=== PATIENT | male | born 1955 | race Caucasian/White ===

== ENCOUNTER → 2017-07-27 | Outpatient (CLI) | payer OTHER ==
[~2017-07-27] MED LIST: ALPR.25 PO; AMLO10 PO; Aspirin EC81 MG PO; DULERA 100 MCG/13 GM; DULO60 PO; PRAM.125 PO; Percocet 5-3251 EACH PO; Prinivil10 MG PO; TAMS.4ER PO
== END ==
LOC: LAB EV 10:30
DX: L08.9 Local infection of the skin and subcutaneous tissue, unspecified (principal); I10 Essential (primary) hypertension
CPT/HCPCS: 87070; 87205

== ENCOUNTER → 2017-11-08 18:44 | Emergency (ER) | payer OTHER ==
[~2017-11-08 18:44] MED LIST changes: -ALPR.25 PO; -AMLO10 PO; -Aspirin EC81 MG PO; -DULERA 100 MCG/13 GM; -DULO60 PO; -PRAM.125 PO; -Prinivil10 MG PO; -TAMS.4ER PO
== END | disposition left against medical advice (07) ==
LOC: ER 18:44
DX: Z53.21 Procedure and treatment not carried out due to patient leaving prior to being seen by health care provider (principal)

== ENCOUNTER 2019-06-12 08:08 | Day surgery (SDC) | payer OTHER ==
[~2019-06-12 08:08] MED LIST changes: +ALPR.25 PO; +AMLO10 PO; +Aspirin EC81 MG PO; +DULERA 100 MCG/13 GM; +DULO60 PO; +PRAM.125 PO; +Prinivil10 MG PO; +TAMS.4ER PO
[2019-06-12] MEDS ORDERED: Hair, Skin & N1 EACH PO (09:44)
== END 2019-06-12 08:50 | disposition home or self-care (01) ==
LOC: ATC 08:08
DX: E87.1 Hypo-osmolality and hyponatremia (principal); I10 Essential (primary) hypertension; J45.909 Unspecified asthma, uncomplicated; F32.9 Major depressive disorder, single episode, unspecified; F41.9 Anxiety disorder, unspecified; N40.0 Benign prostatic hyperplasia without lower urinary tract symptoms; Z88.2 Allergy status to sulfonamides; Z79.82 Long term (current) use of aspirin; Z79.899 Other long term (current) drug therapy; Z98.52 Vasectomy status
CPT/HCPCS: 36415; 80400; 82533; 96372; J0834

== ENCOUNTER 2020-11-02 05:56 | Day surgery (SDC) | payer OTHER ==
[~2020-11-02] VITALS: Ht 183 cm; Wt 86.0 kg
[~2020-11-02 05:56] MED LIST changes: +ACET500 PO; +ALBU90OI INH; +CLON1 PO; -DULERA 100 MCG/13 GM; +DULERA 100 MCG/13 GM INH; +Flonase 0.05% N16 GM; +Hair, Skin & N1 EACH PO; +Lamictal25 MG PO; +Naproxen375 M1 PO; +THERA-D2000 UNIT PO
--- NOTE | 2020-11-02 07:23 | NUR ---
Ambulatory in Day Surgery History, Chart, Medications and Allergies reviewed before start of procedure.Patient confirms NPO status and agrees with scheduled surgery. Lungs clear T/O to Auscultation. Patient reports completing Chlorhexadine shower X2 prior to admission to hospital.Surgical site prepped with 2% Chlorhexidine cloth wipe.
--- NOTE | 2020-11-02 14:21 | NUR ---
Discharge instructions reviewed with patient. Patient verbalizes understanding. Copy given to patient to take home. Discharged via wheelchair to private car for ride home.
== END 2020-11-02 14:15 | disposition home or self-care (01) ==
LOC: ORSCMMR 05:56 → ORD 07:30 → ORSCMMR 07:30
PROVIDERS: Surgery
PROC: 8E0W4CZ Robotic Assisted Procedure of Trunk Region, Percutaneous Endoscopic Approach (ICD-10-PCS; principal; 2020-11-02 07:30)
PROC: 0YUA4JZ Supplement Bilateral Inguinal Region with Synthetic Substitute, Percutaneous Endoscopic Approach (ICD-10-PCS; principal; 2020-11-02 07:30)
DX: K40.20 Bilateral inguinal hernia, without obstruction or gangrene, not specified as recurrent (principal); I10 Essential (primary) hypertension; J45.909 Unspecified asthma, uncomplicated; Z79.899 Other long term (current) drug therapy
CPT/HCPCS: 49650; S2900; A9270; C1781; J0690; J1100; J1885; J2250; J2405; J2704; J3010; J7120

== ENCOUNTER → 2021-12-30 | Outpatient (CLI) | payer BC, OTHER ==
[~2021-12-30] MED LIST changes: +DULERA 100 MCG-13 GM INH; +FLUOXETINE HCL20 M1 PO; +Seroquel Xr50 MG PO; +Voltaren100 GM TOP
[2021-12-30 09:49] LABS: BASOPHILS ABSOLUTE AUTO 0.03 K/mm3 (0.00-0.23); BASOPHILS PERCENT AUTO 1 % (0-2); EOSINOPHILS ABSOLUTE AUTO 0.08 K/mm3 (0.00-0.68); EOSINOPHILS PERCENT AUTO 2 % (0-6); Hemoglobin 12.5 g/dL (13.5-17.5); IMMATURE GRAN ABSOLUTE AUTO 0.01 K/mm3 (0.00-0.10); IMMATURE GRAN PERCENT AUTO 0 % (0-1); LYMPHOCYTES ABSOLUTE AUTO 1.49 K/mm3 (0.84-5.20); LYMPHOCYTES PERCENT AUTO 29 % (21-46); MONOCYTES ABSOLUTE AUTO 0.51 K/mm3 (0.16-1.47); MONOCYTES PERCENT AUTO 10 % (4-13); Mean Corpuscular HGB 24.2 pg (26.0-34.0); Mean Corpuscular HGB Conc 32.1 g/dL (31.5-36.5); Mean Corpuscular Volume 75 fL (80-100); Mean Platelet Volume 9.6 fL (9.1-12.4); NEUTROPHILS ABSOLUTE AUTO 3.04 K/mm3 (1.96-9.15); NEUTROPHILS PERCENT AUTO 59 % (41-73); Platelet Count 467 K/mm3 (150-400); RDW Coefficient Variation 15.9 % (11.7-14.2); RDW Standard Deviation 43.6 fL (35.1-46.3); Red Blood Cell Count 5.17 M/mm3 (4.30-5.90); White Blood Cell Count 5.16 K/mm3 (4.00-11.30)
[2021-12-30 10:04] LABS: Anion Gap 8 mmol/L (6-16); Blood Urea Nitrogen 13 mg/dL (8-24); Bun/Creatinine Ratio 17.9 (12.0-20.0); CO2, Blood 26 mmol/L (21-32); Calcium, Blood 9.3 mg/dL (8.5-10.1); Chloride, Blood 94 mmol/L (98-108); Creatinine, Blood 0.73 mg/dL (0.60-1.20); Ferritin, Serum 21 ng/mL (26-388); Glomerular Filtration Rate 101 (60-); Glucose, Blood 112 mg/dL (70-99); Iron Serum 27 ug/dL (65-175); Percent Saturation 5.9 % (20.0-50.0); Potassium, Blood 4.2 mmol/L (3.5-5.5); Sodium, Blood 128 mmol/L (136-145); Total Iron Binding Capacity 458 ug/dL (250-450)
== END | disposition home or self-care (01) ==
LOC: LAB 07:00 → LAB SHORT 07:00
PROVIDERS: Student in an Organized Health Care Education/Training Program
DX: Z12.5 Encounter for screening for malignant neoplasm of prostate (principal); D64.9 Anemia, unspecified; E87.1 Hypo-osmolality and hyponatremia
CPT/HCPCS: 80048; 82728; 83540; 83550; 85025; G0103

== ENCOUNTER 2022-11-30 15:05 | Inpatient (IN) | payer BC, OTHER ==
[2022-11-30] VITALS (17 sets, daily range): BP systolic 97–164; BP diastolic 45–71
[~2022-11-30] VITALS: Ht 182.9 cm; Wt 99.2 kg
[2022-11-30 15:27] LABS: Base Excess Venous -1.9 mmol/L; Bicarbonate Venous 23.3 mmol/L (24.0-30.0); PCO2 Venous 35.1 mmHg (38-42); pH Blood Venous 7.42 (7.34-7.37)
[2022-11-30 15:35] LABS: Calcium, Ionized (POC) 1.12 mmol/L (1.10-1.46); Chloride (POC) 95 mmol/L (98-108); Creatinine (POC) 0.9 mg/dL (0.8-1.3); Glucose (ISTAT POC) 122 mg/dL (70-99); Hemoglobin (POC) 15.6 g/dL (13.5-17.5); Potassium (POC) 4.2 mmol/L (3.5-5.5); Sodium (POC) 129 mmol/L (135-148); Total CO2 (POC) 22 mmol/L (21-32)
[2022-11-30 15:48] LABS: BASOPHILS ABSOLUTE AUTO 0.02 K/mm3 (0.00-0.23); BASOPHILS PERCENT AUTO 0 % (0-2); EOSINOPHILS ABSOLUTE AUTO 0.08 K/mm3 (0.00-0.68); EOSINOPHILS PERCENT AUTO 1 % (0-6); Hematocrit 42.5 % (37.0-53.0); IMMATURE GRAN ABSOLUTE AUTO 0.03 K/mm3 (0.00-0.10); IMMATURE GRAN PERCENT AUTO 1 % (0-1); LYMPHOCYTES ABSOLUTE AUTO 1.18 K/mm3 (0.84-5.20); LYMPHOCYTES PERCENT AUTO 19 % (21-46); MONOCYTES ABSOLUTE AUTO 0.49 K/mm3 (0.16-1.47); MONOCYTES PERCENT AUTO 8 % (4-13); Mean Corpuscular HGB 31.5 pg (26.0-34.0); Mean Corpuscular HGB Conc 35.3 g/dL (31.5-36.5); Mean Corpuscular Volume 89 fL (80-100); Mean Platelet Volume 9.5 fL (9.1-12.4); NEUTROPHILS ABSOLUTE AUTO 4.48 K/mm3 (1.96-9.15); NEUTROPHILS PERCENT AUTO 71 % (41-73); Platelet Count 217 K/mm3 (150-400); RDW Coefficient Variation 12.8 % (11.7-14.2); RDW Standard Deviation 41.7 fL (35.1-46.3); Red Blood Cell Count 4.76 M/mm3 (4.30-5.90); White Blood Cell Count 6.28 K/mm3 (4.00-11.30)
[2022-11-30 15:59] LABS: Magnesium, Blood 2.2 mg/dL (1.6-2.4)
[2022-11-30 16:41] LABS: Alanine Aminotransfer (ALT/SGP 28 U/L (12-78); Albumin, Blood 3.4 g/dL (3.4-5.0); Albumin/Globulin Ratio 1.3 (0.8-1.8); Alk Phos 57 U/L (50-136); Anion Gap 4 mmol/L (6-16); Aspartate Aminotrans (AST/SGOT 30 U/L (12-37); Bilirubin, Total 0.2 mg/dL (0.1-1.0); Blood Urea Nitrogen 14 mg/dL (8-24); Bun/Creatinine Ratio 15.1 (12.0-20.0); CO2, Blood 26 mmol/L (21-32); Calcium, Blood 8.3 mg/dL (8.5-10.1); Chloride, Blood 98 mmol/L (98-108); Creatinine, Blood 0.93 mg/dL (0.60-1.20); Ethanol (Alcohol), Blood, Med <3 mg/dL; Globulin, Blood 2.6 g/dL (2.2-4.0); Glomerular Filtration Rate 91 (60-); Glucose, Blood 133 mg/dL (70-99); Potassium, Blood 4.3 mmol/L (3.5-5.5); Sodium, Blood 128 mmol/L (136-145)
[2022-11-30 17:49] LABS: Source, Urine Foley catheter
[2022-11-30 17:52] LABS: Appearance, Urine Clear (Clear); Bilirubin, Urine Neg (Neg); Blood, Urine Neg (Neg); Color, Urine Yellow (P-Yellow); Glucose Qualitative, Urine Neg (Neg); Ketones, Urine Neg (Neg); Leukocyte Esterase, Urine Neg (Neg); Nitrite, Urine Neg (Neg); Protein, Urine 3+ (Neg); Urobilinogen, Urine NORM (Normal)
[2022-11-30 18:01] LABS: Hyaline Casts 0-2 /lpf (0-2); Red Blood Cells, Urine 0-2 /hpf (0-2); White Blood Cells, Urine 0-2 /hpf (0-5)
[2022-11-30 18:02] LABS: Bacteria Few /hpf; Squamous Epithelial Cells Not Seen /hpf (Few)
[2022-11-30 18:07] LABS: U Amphetamine Screen Not Detected; U Barbituate Screen Not Detected; U Benzodiazapine Screen Not Detected; U Buprenorphine Screen Not Detected; U Cannabinoids Screen Not Detected; U Cocaine Screen Not Detected; U Methadone Screen Not Detected; U Methamphetamine Screen Not Detected; U Opiates Screen Not Detected; U Oxycodone Screen Not Detected; U Phencyclidine Screen Not Detected; U Propoxyphene Screen Not Detected
--- NOTE | 2022-11-30 19:40 | NUR ---
ADMIT RECEIVED FROM ER. INTUBATED. UNRESPONSIVE TO NOXIOUS STIMULI. NO SPONTANEOUS MOVEMENT. PUPILS FIXED AND DILATED. EPINENPHRINE AT 8MCG/MIN. BP STABLE. MONITOR SHOWS JUNCTIONAL RHYTHM, RATE 70s. AFEBRILE. OG CLAMPED. IBARRA PATENT AND DRAINING TO GRAVITY. RIJ CENTRAL LINE NOTED, DRSG C/D/I. SEE ADMIT ASSESSMENT FOR FULL ASSESSMENT.
[2022-12-01] VITALS (65 sets, daily range): BP systolic 93–144; BP diastolic 46–64
[2022-12-01 04:38] LABS: BASOPHILS ABSOLUTE AUTO 0.03 K/mm3 (0.00-0.23); BASOPHILS PERCENT AUTO 0 % (0-2); EOSINOPHILS PERCENT AUTO 0 % (0-6); Hematocrit 39.7 % (37.0-53.0); Hemoglobin 13.6 g/dL (13.5-17.5); IMMATURE GRAN ABSOLUTE AUTO 0.14 K/mm3 (0.00-0.10); IMMATURE GRAN PERCENT AUTO 1 % (0-1); LYMPHOCYTES ABSOLUTE AUTO 0.76 K/mm3 (0.84-5.20); LYMPHOCYTES PERCENT AUTO 3 % (21-46); MONOCYTES ABSOLUTE AUTO 2.05 K/mm3 (0.16-1.47); MONOCYTES PERCENT AUTO 9 % (4-13); Mean Corpuscular HGB 31.1 pg (26.0-34.0); Mean Corpuscular HGB Conc 34.3 g/dL (31.5-36.5); Mean Corpuscular Volume 91 fL (80-100); Mean Platelet Volume 9.2 fL (9.1-12.4); NEUTROPHILS ABSOLUTE AUTO 19.72 K/mm3 (1.96-9.15); NEUTROPHILS PERCENT AUTO 87 % (41-73); Platelet Count 259 K/mm3 (150-400); RDW Coefficient Variation 13.5 % (11.7-14.2); RDW Standard Deviation 45.1 fL (35.1-46.3); Red Blood Cell Count 4.38 M/mm3 (4.30-5.90)
[2022-12-01 05:16] LABS: Magnesium, Blood 1.3 mg/dL (1.6-2.4)
[2022-12-01 05:17] LABS: Albumin, Blood 3.1 g/dL (3.4-5.0); Albumin/Globulin Ratio 1.5 (0.8-1.8); Bilirubin, Total 0.7 mg/dL (0.1-1.0); Bun/Creatinine Ratio 14.8 (12.0-20.0); Calcium, Blood 7.3 mg/dL (8.5-10.1); Creatinine, Blood 1.15 mg/dL (0.60-1.20); Globulin, Blood 2.1 g/dL (2.2-4.0); Potassium, Blood 3.9 mmol/L (3.5-5.5); Total Protein, Blood 5.2 g/dL (6.4-8.2)
[2022-12-01 05:17] LABS: PCO2 Arterial 38.5 mmHg (35-45); PO2 Arterial 106 mmHg (80-100); pH Blood Arterial 7.32 (7.35-7.45)
--- NOTE | 2022-12-01 06:24 | NUR ---
SHIFT SUMMARY REMAINS INTUBATED- AC/PC RATE 14, PI 5, PEEP 5, FIO2 30%. SEDATED WITH PROPOFOL AT 20MCG/KG/MIN FOR VENT COMPLIANCE. COUGH REFLEX NOTED THIS AM. NO GAG REFLEX STILL. NO OTHER RESPONSE TO NOXIOUS STIMULI. NO SPONTANEOUS MOVEMENT NOTED. EPINEPHRINE GTT TITRATED BETWEEN 5-8MCG/MIN- NOW INFUSING AT 6MCG/MIN. HR HIGH 50s TO LOW 70s. BP STABLE. LR INFUSING AT 125MLS/HR PER ORDER. OG CLAMPED. IBARRA PATENT AND DRAINING TO GRAVITY. RIJ SITE CLEAR, DRSG D/I. WILL REPORT TO ONCOMING RN WHEN AVAILABLE.
--- NOTE | 2022-12-01 16:22 | NUR ---
COMFORT CARE AFTER PT FAMILY DISCUSSION WITH PALLIATIVE CARE AND DR QUINTERO, PT FAMILY AND PT SPOUSE HAVE DECIEDED TO PROCEED WITH COMFORT CARE MEASURES. PT MED WITH MORPHINE PRE EXTUBATION. PT EXTUBATED AT 1615 BY RT. PT SPOUSE AND FAMILY AT BEDSIDE. WILL CONTINUE TO MONITOR.
--- NOTE | 2022-12-01 16:44 | NUR ---
Spiritual Care Visit. Arrived with Dr. Martins to meet with the family. Family decided to have Pt. extubated and placed on comfort care. With empathy and a pastoral presence gave support to family memebers who were present. Stayed with Spouse and Pts. KATHERIN during extubation. After extubation facilitated a life review and prayed for the Pt. and his family. Retrieved a quilt from Palliative Care closet for the Pt. Spouse verbalized gratitude for the spiritual care support. Will remain available to the Pt. and family.
--- NOTE | 2022-12-01 17:20 | NUR ---
pt placed on comfort care. family at bedside review of pt respirations and medication needs with nursing.
--- NOTE | 2022-12-01 20:42 | NUR ---
REPORT GIVEN TO JAYNE BROOKS, PATIENT TO ROOM 313 FROM ICU. FAMILY WITH PATIENT UP TO ROOM. CENTRAL LINE REMOVED BEFORE TRANSFER.
--- NOTE | 2022-12-02 04:43 | NUR ---
SUMMARY: PATIENT TRANSFERED FROM ICU ON COMFORT CARE. FAMILY AT BEDSIDE THROUGHOUT NIGHT. PATIENT HAD LABORED BREATHING AT START OF SHIFT AFTER TRANSFERRING BEDS. PRN MORPHINE GIVEN ALONG WITH ATROPINE DROPS FOR SECRETIONS. PATIENT NON RESPONSIVE. DOES STILL HAVE GAG REFLUX WHEN SUCTIONING. PATIENT RESTING COMFORTABLY AT THIS TIME.
--- NOTE | 2022-12-02 11:14 | NUR ---
Spiritual Care Follow up Pt. is comfort care and is lingering and not responsive. Family members are present and welcome my visit. Palliative Nurses are present to work with the Pt. Family members verbalized gratitude for the spiritual care visit. Will remain available the remainder of this shift and will brief the weekend on-call environmental projects advisor.
--- NOTE | 2022-12-02 17:41 | NUR ---
Patient resting, unresponsive to voice or touch. Patient skin is warm and diarphoretic, Tylenol supp given for fever. Alternated Roxinal and IV Ativan to manage pain & air hunger. Repositioned Q2H. Will continue plan of care.
--- NOTE | 2022-12-02 17:55 | NUR ---
TOOK OVER PT CARE. REPORT RECIEVED FROM TODD GARCIA
--- NOTE | 2022-12-03 05:13 | NUR ---
SUMMARY: PATIENT ON COMFORT MEASURES. MEDS GIVEN. BREATHS MORE SHALLOW THIS MORNING. MEDS GIVEN PER EMAR. CALLED AND GOT ORDER FOR TORADOL FOR FEVER INSTEAD OF TYLENOL SUPOSITORY FOR PATIENT COMFORT. FAMILY AT BEDSIDE. PATIENT RESTING COMFORTABLY AT THIS TIME.
--- NOTE | 2022-12-03 11:21 | NUR ---
Managed patients symptoms with PRN comfort beds. Patient continues to have fever, body is hot to the touch. PRN Toradol given for fever. Patient at 1036. Family at bedside. 2 commercial artist lettering, patient absent of respirations, heartbeat. Notified MD. [facility] notified.
--- NOTE | 2022-12-03 15:28 | NUR ---
[facility] called, patient left medical floor at 1420.
== END 2022-12-03 10:36 | DRG 64 ==
LOC: ER 15:05 → ICUE 19:32 → MEDS 12-01 20:40
PROVIDERS: Emergency Medicine; Nurse Practitioner Acute Care; ADMIT Hospitalist
PROC: 02HV33Z Insertion of Infusion Device into Superior Vena Cava, Percutaneous Approach (ICD-10-PCS; principal; 2022-11-30)
PROC: B548ZZA Ultrasonography of Superior Vena Cava, Guidance (ICD-10-PCS; 2022-11-30)
PROC: 0DH67UZ Insertion of Feeding Device into Stomach, Via Natural or Artificial Opening (ICD-10-PCS; 2022-11-30)
PROC: 5A1945Z Respiratory Ventilation, 24-96 Consecutive Hours (ICD-10-PCS; 2022-11-30)
PROC: 0BH17EZ Insertion of Endotracheal Airway into Trachea, Via Natural or Artificial Opening (ICD-10-PCS; 2022-11-30)
PROC: 3E033XZ Introduction of Vasopressor into Peripheral Vein, Percutaneous Approach (ICD-10-PCS; 2022-11-30)
PROC: 0T9B70Z Drainage of Bladder with Drainage Device, Via Natural or Artificial Opening (ICD-10-PCS; 2022-11-30)
PROC: 4A033R1 Measurement of Arterial Saturation, Peripheral, Percutaneous Approach (ICD-10-PCS; 2022-12-01)
DX: I63.89 Other cerebral infarction (principal); G92.8 Other toxic encephalopathy; R40.20 Unspecified coma; J96.00 Acute respiratory failure, unspecified whether with hypoxia or hypercapnia; J69.0 Pneumonitis due to inhalation of food and vomit; E87.1 Hypo-osmolality and hyponatremia; R57.9 Shock, unspecified; E87.20 Acidosis, unspecified; Z51.5 Encounter for palliative care; Z66 Do not resuscitate; R56.9 Unspecified convulsions; I10 Essential (primary) hypertension; R00.1 Bradycardia, unspecified; E83.42 Hypomagnesemia; I48.91 Unspecified atrial fibrillation; F31.9 Bipolar disorder, unspecified; J45.909 Unspecified asthma, uncomplicated; Z90.89 Acquired absence of other organs; Z98.52 Vasectomy status; Z98.890 Other specified postprocedural states; Z87.01 Personal history of pneumonia (recurrent); Z86.010 Personal history of colon polyps; Z88.2 Allergy status to sulfonamides; Z79.82 Long term (current) use of aspirin; Z79.899 Other long term (current) drug therapy; Z79.811 Long term (current) use of aromatase inhibitors; Z79.51 Long term (current) use of inhaled steroids; Z79.52 Long term (current) use of systemic steroids
CPT/HCPCS: 31500; 31720; 36556; 36600; 51702; 70450; 71045; 72125; 80047; 80053; 81001; 82803; 83605; 83690; 83735; 83880; 84443; 84484; 85014; 85025; 93005; 93010; 93306; 94002; 94003; 94640; 94664; 94762; 96360-59; 99291-25; A9270; C1751; C9113; G0480; J0171; J0295; J0330; J0461; J1644; J1885; J1953; J2060; J2270; J2310; J2704; J7030; J7050; J7060; J7120